=== PATIENT | female | born 1975 | race Caucasian/White ===

== ENCOUNTER 2022-03-29 22:25 | Emergency (ER) | payer MEDICAID ==
[~2022-03-29] VITALS: Ht 162.6 cm; Wt 100.0 kg
[~2022-03-29 22:25] MED LIST: NO HOME MEDS; TRIA15CR61 TP
[2022-03-29 23:04] VITALS: BP 134/92
[2022-03-30] MEDS ORDERED: CLIN150C2 PO (00:34)
== END 2022-03-30 00:40 | disposition home or self-care (01) ==
LOC: ER 22:27
DX: H61.002 Unspecified perichondritis of left external ear (principal); H92.02 Otalgia, left ear; Z90.710 Acquired absence of both cervix and uterus; Z98.890 Other specified postprocedural states; Z72.89 Other problems related to lifestyle; Z88.5 Allergy status to narcotic agent; Z88.8 Allergy status to other drugs, medicaments and biological substances; Z79.2 Long term (current) use of antibiotics; Z79.899 Other long term (current) drug therapy
CPT/HCPCS: 99283